=== PATIENT | male | born 1985 | race Caucasian/White ===

== ENCOUNTER → 2020-12-04 11:25 | Outpatient (BNVA) | payer OTHER, SELFPAY | PROVIDERS: Visit Provider Internal Medicine | DX: F11.99 Opioid use, unspecified with unspecified opioid-induced disorder (principal) | CPT/HCPCS: 80305; 99202 ==

== ENCOUNTER 2021-06-23 16:05 | Emergency (ER) | payer OTHER, SELFPAY | END 2021-06-23 18:20 | disposition left against medical advice (07) | PROVIDERS: Emergency Provider Emergency Medicine | DX: L23.7 Allergic contact dermatitis due to plants, except food (principal) ==